=== PATIENT | female | born 1960 | race Asian ===

== ENCOUNTER 2024-10-13 14:14 | Emergency (ER) | payer MEDICARE, OTHER ==
[~2024-10-13] VITALS: Ht 170.2 cm; Wt 70.0 kg
[2024-10-13 14:21] VITALS: O2SAT 98
[2024-10-13] MEDS ORDERED: TETANUS, DIPHTHERIA, PERTUSSIS VAC/PF 0.5ML (>10YR OLD) IM ONE (16:30)
[2024-10-13] MEDS ORDERED: BACITRACIN ZINC OINT UDPKT TOP ONE (16:30)
[2024-10-13] MEDS ORDERED: LIDOCAINE HCL/PF 1% 10 MG/ML 5ML VIAL INFIL ONE (16:30)
[2024-10-13] MEDS: BACITRACIN ZINC OINT UDPKT TOP NR (18:50)
[2024-10-13] MEDS: LIDOCAINE HCL/PF 1% 10 MG/ML 5ML VIAL INFIL NR (18:50)
[2024-10-13] MEDS: TETANUS, DIPHTHERIA, PERTUSSIS VAC/PF 0.5ML (>10YR OLD) IM ONE (19:50)
[2024-10-13 19:58] VITALS: BP 132/61; PULSE 65; RESP 16; TEMP 36.66960; O2SAT 100
== END 2024-10-13 20:04 | disposition home or self-care (01) ==
LOC: ER 14:21
DX: S01.81XA Laceration without foreign body of other part of head, initial encounter (principal); S09.90XA Unspecified injury of head, initial encounter; I10 Essential (primary) hypertension; E78.00 Pure hypercholesterolemia, unspecified; Z23 Encounter for immunization; W19.XXXA Unspecified fall, initial encounter; Y92.89 Other specified places as the place of occurrence of the external cause; Y99.8 Other external cause status; Y93.01 Activity, walking, marching and hiking
CPT/HCPCS: 99285; 70450; 73070; 90715; 12011; 90471; J3490